=== PATIENT | female | born 1995 | race Caucasian/White ===

== ENCOUNTER → 2019-02-15 | Outpatient (REF) | payer OTHER | LOC: M SFHCLERA 12:45 | PROVIDERS: ATTEND Nurse Practitioner Family | DX: R50.9 Fever, unspecified (principal) ==

== ENCOUNTER 2019-10-28 21:53 | Emergency (ER) | payer OTHER ==
[~2019-10-28] VITALS: Ht 160 cm; Wt 109.1 kg
[2019-10-28] MEDS ORDERED: VITA400T15 PO (21:59)
[2019-10-28] MEDS ORDERED: MELA3TAB44 PO (21:59)
[2019-10-28] MEDS ORDERED: ZOLO50TA PO (21:59)
[2019-10-28] MEDS ORDERED: METF-791 PO (21:59)
[2019-10-28] MEDS ORDERED: PANT20TA2 PO (21:59)
[2019-10-28] MEDS ORDERED: HYDR-643 PO (21:59)
[2019-10-28 22:50] LABS: INFLUENZA A AMPLIFICATION NEGATIVE (NEGATIVE); INFLUENZA B AMPLIFICATION NEGATIVE (NEGATIVE)
[2019-10-29 01:26] LABS: BASO % 0.4 % (0.0-1.0); EOS # 0.2 10^3/uL (0.0-0.5); EOS % 3.2 % (0.0-3.0); HEMATOCRIT 40.7 % (36.0-47.0); HEMOGLOBIN 13.8 g/dl (12.0-15.5); LYMPH # 3.3 10^3/uL (1.5-5.0); LYMPH % 47.2 % (24.0-44.0); MEAN CORPUSCULAR HEMOGLOBIN 28.3 pg (27.0-33.0); MEAN CORPUSCULAR HGB CONC 33.9 g/dl (32.0-36.5); MEAN CORPUSCULAR VOLUME 83.6 fl (80.0-96.0); MONO # 0.6 10^3/uL (0.0-0.8); NEUTROPHILS # 2.8 10^3/uL (1.5-8.5); NEUTROPHILS % 40.8 % (36.0-66.0); PLATELET COUNT, AUTOMATED 274 10^3/uL (150-450); RED BLOOD COUNT 4.87 10^6/uL (4.00-5.40); WHITE BLOOD COUNT 6.9 10^3/uL (4.0-10.0)
[2019-10-29 02:16] VITALS: BP 136/58
--- NOTE | 2019-10-29 06:00 | ECGEPIP ---
[facility] - ED Test Date: 2019-10-29 Pat Name: JAVAN BYRD Department: Room: - Gender: Female Service Clerk: ARASH : 1995 Requested By: CARMELINA Zayas PA-C Order Number: [id number] Reading MD: Jesus James Measurements Intervals [place] Rate: 64 P: 19 [place]: 147 QRS: 35 QRSD: 88 T: 13 QT: 389 QTc: 402 Interpretive Statements SINUS RHYTHM WITH SINUS ARRHYTHMIA BENIGN EARLY REPOLARIZATION NONSPECIFIC T WAVE ABNORMALITIES NO PRIORS FOR COMPARISON Electronically Signed on 10-29-2019 6:00:12 EST by Jesus James
--- NOTE | 2019-10-29 07:21 | REP ---
PA and lateral chest: There are no comparisons. The lung marcelo are clear. The cardiac size is normal. The jesus, mediastinum, and skeletal structures are unremarkable. Impression: Negative PA and lateral chest. Electronically Signed by Eldon Meadows MD 10/29/2019 07:13 A
== END 2019-10-29 02:20 | disposition home or self-care (01) ==
LOC: M ED 21:53
DX: J00 Acute nasopharyngitis [common cold] (principal); B34.9 Viral infection, unspecified; R94.31 Abnormal electrocardiogram [ECG] [EKG]; E66.9 Obesity, unspecified; F33.9 Major depressive disorder, recurrent, unspecified; F41.9 Anxiety disorder, unspecified; K21.9 Gastro-esophageal reflux disease without esophagitis; E28.2 Polycystic ovarian syndrome

== ENCOUNTER 2020-08-25 07:44 | Day surgery (SDC) | payer OTHER ==
[~2020-08-25] VITALS: Ht 160 cm; Wt 118.4 kg
[~2020-08-25 07:44] MED LIST: ACETAMINOPHEN 650 MG SUPP PR ONE; HYDR-643 PO; LR 1,000 ML IV ONE; MELA3TAB44 PO; METF-838 PO; NS 1,000 ML IV SCH; PANT20TA6 PO; VITA400T15 PO; ZOLO50TA PO
[2020-08-25] MEDS ORDERED: propofoL 200 MG/20 ML VIAL As Ordered ONE (08:19)
[2020-08-25] MEDS ORDERED: LIDOCAINE 2% 100MG/5ML SDV (FOR ANES.) As Ordered ONE (08:19)
[2020-08-25] MEDS ORDERED: dexameTHASONE 4 MG/ML 1ML VIAL (J1100 PER 1MG) As Ordered ONE (08:20)
[2020-08-25] MEDS ORDERED: ONDANSETRON 4MG/2ML VIAL As Ordered ONE (08:20)
[2020-08-25] MEDS ORDERED: fentaNYL 100 MCG/2 ML INJECTION (J3010) As Ordered ONE (08:20)
[2020-08-25] MEDS ORDERED: MIDAZOLAM INJ 2MG/2ML VIAL (J2250 PER 1MG) As Ordered ONE (08:20)
[2020-08-25 08:21] LABS: HEMOGLOBIN 13.9 g/dl (12.0-15.5); MEAN CORPUSCULAR HEMOGLOBIN 28.4 pg (27.0-33.0); MEAN CORPUSCULAR HGB CONC 33.1 g/dl (32.0-36.5); MEAN CORPUSCULAR VOLUME 85.9 fl (80.0-96.0); PLATELET COUNT, AUTOMATED 302 10^3/uL (150-450); RED BLOOD COUNT 4.89 10^6/uL (4.00-5.40); WHITE BLOOD COUNT 8.1 10^3/uL (4.0-10.0)
[2020-08-25] MEDS ORDERED: KETOROLAC 60MG 2ML VIAL As Ordered ONE (08:25)
[2020-08-25] MEDS ORDERED: SCOPOLAMINE 1MG TRANSDERMAL PATCH As Ordered ONE (08:57)
[2020-08-25] MEDS ORDERED: ACETAMINOPHEN 650 MG SUPP As Ordered ONE (09:03)
[2020-08-25 09:10] LABS: BLOOD UREA NITROGEN 14 MG/DL (7-18); CALCIUM LEVEL 8.9 MG/DL (8.5-10.1); CARBON DIOXIDE LEVEL 27 MEQ/L (21-32); CHLORIDE LEVEL 107 MEQ/L (98-107); CREATININE FOR GFR 1.01 MG/DL (0.55-1.30); GLOMERULAR FILTRATION RATE > 60.0 (>60); GLUCOSE, FASTING 102 MG/DL (70-100); HCG, SERUM QUANTITATIVE < 1.0 MIU/ML; SODIUM LEVEL 141 MEQ/L (136-145)
[2020-08-25] MEDS ORDERED: SCOPOLAMINE 1MG TRANSDERMAL PATCH TOP ONE (09:15)
[2020-08-25] MEDS ORDERED: PERCOCET 5MG/325MG TAB PO PRN (10:15)
[2020-08-25] MEDS ORDERED: LR 1,000 ML IV SCH (10:15)
[2020-08-25] MEDS ORDERED: ONDANSETRON 4MG/2ML VIAL IV PRN (10:15)
[2020-08-25] MEDS ORDERED: fentaNYL 100 MCG/2 ML INJECTION (J3010) IV PRN (10:15)
--- NOTE | 2020-08-25 10:48 | RO ---
OPERATIVE NOTE DATE OF OPERATION: 08/25/2020 PREOPERATIVE DIAGNOSIS: Abnormal uterine bleeding, questionable endometrial poly. POSTOPERATIVE DIAGNOSIS: Abnormal uterine bleeding, hyperplasia of the endometrium. OPERATIVE PROPOSED: Hysteroscopy dilation and curettage (D&C) and possible polypectomy. OPERATIVE PROCEDURE: Hysteroscopy dilation and curettage (D&C). ANESTHESIA: General. ESTIMATED BLOOD LOSS: Less than 20 mL. SURGEON: Ever Gutierrez MD. SURVEY INTERVIEWER: Maude Carson MD for retraction, extraction, visualization. Otherwise, the procedure could not be completed. DESCRIPTION OF PROCEDURE: After adequate anesthesia, prepped and draped in the lithotomy position, the bladder was drained for 25 mL of clear urine. Weighted-speculum was placed in the vagina. This lady has an extremely long vagina with the cervix high up at the apex. Posteriorly, she has a very capacious vagina with the lateral denney enfolding and the anterior and posterior denney collapsing, making it difficult to visualize the cervix, requiring Dr. Carson and the equipment maintenance technician to use extra retractors while attempting to visualize the cervix. Eventually, we were able to visualize the cervix. Anterior lip on the anterior aspect of the cervix, the uterus was sounded up to 8 cm, dilated to a Cooper 16. Hysteroscope was introduced. Panoramic review revealed a large endometrial cavity with very fluffy type endometrium. No evidence of polypoid tissue, but an excessive amount of endometrium was noted throughout the anterior, posterior, and lateral denney. The os that were visualized were normal. Curettage of the cavity was done and was sent to pathology under separate cover. This lady may require a Mirena intrauterine device (IUD) or some other alternative for her abnormal uterine bleeding. The patient has polycystic ovarian syndrome and may be a good candidate for same. We used 150 mL of fluid in and 150 mL out. With the instrument and pad correct, the tenaculum was removed. All of the retractors were removed. The uterus was placed in anatomical position and the patient was sent to recovery in good condition.
[2020-08-25] MEDS ORDERED: IBUPROFEN 600MG TAB PO SCH (11:00)
[2020-08-25 11:40] VITALS: BP 128/75
== END 2020-08-25 11:50 | disposition home or self-care (01) ==
LOC: M SDC 07:44
PROVIDERS: ATTEND Obstetrics & Gynecology
DX: N93.9 Abnormal uterine and vaginal bleeding, unspecified (principal); N85.00 Endometrial hyperplasia, unspecified; F32.9 Major depressive disorder, single episode, unspecified; M54.5 Low back pain; E28.2 Polycystic ovarian syndrome; F41.9 Anxiety disorder, unspecified; K21.9 Gastro-esophageal reflux disease without esophagitis; Z79.84 Long term (current) use of oral hypoglycemic drugs; Z79.899 Other long term (current) drug therapy
CPT/HCPCS: 36415; 58558; 80048; 84702; 85027; 88305; J1100; J1885; J2250; J2405; J3010